=== PATIENT | female | born 1930 | race Caucasian/White ===

== ENCOUNTER 2016-12-25 06:47 | Emergency (ER) | payer MEDICARE, MEDICAID ==
[~2016-12-25] VITALS: Ht 152.4 cm; Wt 56.7 kg
--- NOTE | 2016-12-25 06:47 | NUR ---
Patient to ER bed 2 to gown for evaluation. Side rails up. Report given to am shift RN
[2016-12-25 06:53] VITALS: BP_SYST 175
[2016-12-25] MEDS ORDERED: NACL 0.9% 1,000 ML IV ONE (07:00)
[2016-12-25] MEDS ORDERED: PANT20TA3 PO (07:03)
[2016-12-25] MEDS ORDERED: ALEN70TA27 PO (07:04)
[2016-12-25] MEDS ORDERED: CLOP75TA32 PO (07:05)
[2016-12-25] MEDS ORDERED: ATEN-41 PO (07:05)
[2016-12-25] MEDS ORDERED: PRO20 PO (07:07)
[2016-12-25] MEDS ORDERED: OMEG1CAP48 PO (07:09)
[2016-12-25] MEDS ORDERED: CYAN1TAB47 PO (07:09)
[2016-12-25] MEDS ORDERED: MEMA10TA21 PO (07:10)
[2016-12-25] MEDS ORDERED: MV,C1TAB21 PO (07:10)
--- NOTE | 2016-12-25 07:10 | NUR ---
RECEIVED PATIENT ON BED AWAKE,ALERT,CONFUSED/DISORIENTED.BREATHING EVEN AND UNLABORED.NO ACUTE DISTRESS. Addendum: 12/25/16 at 0738 by BREANN UNABLE TO OBTAIN INFORMATION MUCH INFORMATION DUE TO CONFUSION.NO OTHER COMPLAIN/INJURIES PER PATIENT OR NOTED
[2016-12-25] MEDS ORDERED: GLIP5TAB13 PO (07:11)
[2016-12-25] MEDS ORDERED: ISO10 PO (07:12)
[2016-12-25] MEDS ORDERED: CHOL200035 PO (07:12)
[2016-12-25] MEDS ORDERED: ACET-73 PO (07:14)
[2016-12-25] MEDS ORDERED: CALC-1197 PO (07:14)
[2016-12-25] MEDS ORDERED: ATOR40TA68 PO (07:15)
[2016-12-25] MEDS ORDERED: DONE10TA44 PO (07:15)
[2016-12-25] MEDS ORDERED: CARB30DR14 OP (07:16)
[2016-12-25] MEDS ORDERED: NPH,100V SUBCUT (07:16)
[2016-12-25 07:18] LABS: BASOPHILS # (AUTO) 0.1 K/uL (0.0-0.2); BASOPHILS % (AUTO) 0.9 % (0.0-2.0); EOSINOPHILS # (AUTO) 0.3 K/uL (0.0-0.4); EOSINOPHILS % (AUTO) 5.7 % (0.0-4.0); HEMATOCRIT 35.5 % (36-48); HEMOGLOBIN 11.6 g/dL (12.0-16.0); LYMPHOCYTES # (AUTO) 1.7 K/uL (1.0-5.5); LYMPHOCYTES % (AUTO) 27.9 % (20.5-51.5); MEAN CORPUSCULAR HEMOGLOBIN 31 pg (27-31); MEAN CORPUSCULAR HGB CONC 33 % (32-36); MEAN CORPUSCULAR VOLUME 94 fL (79.0-98.0); MONOCYTES # (AUTO) 0.5 K/uL (0.0-1.0); NEUTROPHILS # (AUTO) 3.5 K/uL (1.8-7.7); NEUTROPHILS % (AUTO) 57.5 % (40.0-70.0); PLATELET COUNT (AUTO) 172 K/uL (130-430); RED BLOOD CELL COUNT(AUTO) 3.78 MIL/uL (4.2-6.2); WHITE BLOOD COUNT (AUTO) 6.1 K/uL (4.8-10.8)
[2016-12-25] MEDS ORDERED: TRIA10PO3 MC (07:18)
[2016-12-25] MEDS ORDERED: TRIA15CR4 TP (07:18)
[2016-12-25] MEDS ORDERED: PERM60CR18 TP (07:19)
--- NOTE | 2016-12-25 07:20 | NUR ---
STRAIGHT CATHETER DONE;TOLERATED PROCEDURE WELL
--- NOTE | 2016-12-25 07:24 | NUR ---
Medication reconciliation completed with information provided by [facility]. Any prior medication reconciliation on file was reviewed and corrected.
[2016-12-25 07:28] LABS: POTASSIUM 4.6 mmol/L (3.5-5.1)
[2016-12-25 07:29] LABS: CALCIUM 9.2 mg/dL (8.4-11.0); CREATININE 0.88 mg/dL (0.55-1.30)
[2016-12-25 07:33] LABS: ALBUMIN 3.4 g/dL (3.4-4.8); TOTAL BILIRUBIN 0.8 mg/dL (0.0-1.0); TOTAL PROTEIN, SERUM 7.8 g/dL (6.4-8.3)
[2016-12-25 07:39] LABS: PROTHROMBIN TIME 10.4 SECS (9.5-12.5)
--- NOTE | 2016-12-25 07:40 | NUR ---
ER at bedside examining patient.
[2016-12-25 07:52] LABS: BILIRUBIN,URINE NEGATIVE (NEGATIVE); CLARITY/URINE CLEAR (CLEAR); COLOR,URINE YELLOW (YELLOW); GLUCOSE,URINE NEGATIVE (NEGATIVE); KETONES,URINE NEGATIVE (NEGATIVE); LEUKOCYTE ESTERASE ,URINE NEGATIVE (NEGATIVE); NITRITE, URINE NEGATIVE (NEGATIVE); PH,URINE 6.5 (5.0-8.0); PROTEIN URINE NEGATIVE (NEGATIVE); UROBILINOGEN,URINE 0.2 (0.2-1.0)
[2016-12-25 07:56] LABS: BLOOD, URINE TRACE (NEGATIVE)
[2016-12-25] MEDS ORDERED: CLOPIDOGREL BISULFATE 75 MG TABLET PO ONE (08:00)
--- NOTE | 2016-12-25 08:00 | NUR ---
# 20 gauge angiocath placed to LAC. Use of asceptic technique. Opsite placed over site. Blood return noted. Flushed with 10 cc of normal saline. No evidence of infiltration noted. Patient tolerated well.
[2016-12-25 08:03] LABS: RBC,URINE 0-3 /HPF (0-3)
[2016-12-25 08:04] LABS: BACTERIA,URINE MANY /HPF (None Seen); MUCUS,URINE None Seen /LPF (None Seen); WBC,URINE 0-3 /HPF (0-3)
--- NOTE | 2016-12-25 08:40 | NUR ---
PATIENT COMPLAINING OF ITCHINESS;WITH RED RAISED RASH TO BOTH ARMS;MD INFORMED;WITH ORDER FOR BENADRYL;CARRIED OUT
[2016-12-25] MEDS ORDERED: DIPHENHYDRAMINE HCL 25 MG CAPSULE PO ONE (08:45)
[2016-12-25] MEDS ORDERED: DIPHENHYDRAMINE INJ 50 MG/ML VIAL ONE (09:01)
--- NOTE | 2016-12-25 09:45 | NUR ---
Assisted pt to BSC. Pt produced a massive brown BM. Pt assisted to bed resumed cardiac monitoring.
--- NOTE | 2016-12-25 10:48 | NUR ---
PATIENT'S SON AT BEDSIDE.REFUSING TO TRANSFER PATIENT TO ANOTHER FACILITY STATED "I REALLY THINK SHE CAN GO BACK TO WHERE SHE LIVES"DR. SANTANA EXPLAINED TO SON THAT THE PATIENT HAD A MILD HEART ATTACK WHICH SHOWED IN HER LAB TESTS BUT STILL HESITANT AND DOES NOT FULLY BELIEVE WHATEVER THE DOCTOR IS TELLING HIM
--- NOTE | 2016-12-25 10:58 | NUR ---
CALLLUIS FERNANDO TAFOYA;SPOKE WITH LEXUS(ER CN);REPORT GIVEN
[2016-12-25 11:40] VITALS: BP_SYST 171
--- NOTE | 2016-12-25 11:58 | NUR ---
Patient to be transferred to [facility] ER. Is being transferred due to Insurance issues. Receiving facility has accepting physician and available space. ER physician has signed transfer form. Patient or responsible green party has agreed to transfer and signed form. Patient belongings inventoried and will be sent with patient. Copy of nursing notes, lab reports, EKG, Physicians Orders and X-rays to be sent with patient. Report called to Sofi at receiving facility. Receiving physician is Dr. Mathews. ambulance service has been called for transfer. ETA is [phone] .
== END 2016-12-25 11:50 | disposition short-term general hospital (02) ==
LOC: SED 06:47
DX: I21.4 Non-ST elevation (NSTEMI) myocardial infarction (principal); E11.9 Type 2 diabetes mellitus without complications; K21.9 Gastro-esophageal reflux disease without esophagitis; I10 Essential (primary) hypertension; E78.00 Pure hypercholesterolemia, unspecified; Z79.899 Other long term (current) drug therapy; Z88.8 Allergy status to other drugs, medicaments and biological substances
CPT/HCPCS: 36415; 70450; 71010; 80053; 81000; 83605; 84484; 85025; 85610; 85730; 87040; 87086; 93005; 96360; 96361; 99285; J1200; J7030; Q0163

== ENCOUNTER 2017-11-07 06:31 | Emergency (ER) | payer MEDICARE, MEDICAID ==
[~2017-11-07] VITALS: Ht 157.5 cm; Wt 83.9 kg
[2017-11-07 06:31] VITALS: BP_SYST 161
[~2017-11-07 06:31] MED LIST: ACET-73 PO; ALEN70TA27 PO; ATEN-41 PO; ATOR40TA68 PO; CALC-1197 PO; CARB30DR14 OP; CHOL200035 PO; CLOP75TA32 PO; CYAN1TAB47 PO; DONE10TA44 PO; GLIP5TAB13 PO; ISO10 PO; MEMA10TA21 PO; MV,C1TAB21 PO; NPH,100V SUBCUT; OMEG1CAP48 PO; PANT20TA3 PO; PERM60CR18 TP; PRO20 PO; TRIA15CR4 TP
[2017-11-07 07:20] LABS: BASOPHILS # (AUTO) 0.1 K/uL (0.0-0.2); BASOPHILS % (AUTO) 0.9 % (0.0-2.0); EOSINOPHILS # (AUTO) 0.2 K/uL (0.0-0.4); HEMATOCRIT 38.7 % (36-48); HEMOGLOBIN 12.1 g/dL (12.0-16.0); LYMPHOCYTES # (AUTO) 1.9 K/uL (1.0-5.5); LYMPHOCYTES % (AUTO) 31.5 % (20.5-51.5); MEAN CORPUSCULAR HEMOGLOBIN 30 pg (27-31); MEAN CORPUSCULAR HGB CONC 31 % (32-36); MEAN CORPUSCULAR VOLUME 96 fL (79.0-98.0); MONOCYTES # (AUTO) 0.6 K/uL (0.0-1.0); MONOCYTES % (AUTO) 9.6 % (1.7-9.3); NEUTROPHILS # (AUTO) 3.1 K/uL (1.8-7.7); PLATELET COUNT (AUTO) 180 K/uL (130-430); RED BLOOD CELL COUNT(AUTO) 4.03 MIL/uL (4.2-6.2); RED CELL DISTRIBUTION WIDTH 12.6 % (9.0-15.0); WHITE BLOOD COUNT (AUTO) 5.9 K/uL (4.8-10.8)
[2017-11-07 07:30] LABS: ANION GAP 4 (5-15); CALCIUM 9.5 mg/dL (8.4-11.0); CHLORIDE 101 mmol/L (98-107); CREATININE 0.77 mg/dL (0.55-1.30); GLUCOSE 109 mg/dL (70-99); POTASSIUM 4.2 mmol/L (3.5-5.1); SODIUM SERUM 135 mmol/L (136-145); UREA NITROGEN, BLOOD 28 mg/dL (8-21)
[2017-11-07 07:34] LABS: ALANINE AMINOTRANSFERASE 69 U/L (12-78); ALBUMIN 2.9 g/dL (3.4-4.8); ASPARTATE AMINOTRANSFERASE 70 U/L (10-37); TOTAL BILIRUBIN 1.1 mg/dL (0.0-1.0)
[2017-11-07 07:35] LABS: BILIRUBIN,URINE NEGATIVE (NEGATIVE); BLOOD, URINE 1+ (NEGATIVE); CLARITY/URINE HAZY (CLEAR); COLOR,URINE YELLOW (YELLOW); GLUCOSE,URINE NEGATIVE (NEGATIVE); KETONES,URINE NEGATIVE (NEGATIVE); LEUKOCYTE ESTERASE ,URINE TRACE (NEGATIVE); NITRITE, URINE NEGATIVE (NEGATIVE); PH,URINE 5.5 (5.0-8.0); PROTEIN URINE TRACE (NEGATIVE); UROBILINOGEN,URINE 0.2 (0.2-1.0)
[2017-11-07 07:40] LABS: BACTERIA,URINE MANY /HPF (None Seen); WBC,URINE 0-3 /HPF (0-3)
[2017-11-07] MEDS ORDERED: cefTRIAXone 1 GM in LIDOCAINE 1%, 20 ML MDV 2.1 ML IM ONE (07:45)
[2017-11-07] MEDS ORDERED: KETOROLAC TROMETHAMINE 60 MG/2 ML VIAL IM ONE (07:45)
[2017-11-07] MEDS ORDERED: cefTRIAXone 1 GM VIAL ONE (08:08)
[2017-11-07] MEDS ORDERED: LIDOCAINE 1%, 20 ML MDV 20 ML ONE (08:08)
[2017-11-07 10:19] VITALS: BP_SYST 159
== END 2017-11-07 10:15 | disposition home or self-care (01) ==
LOC: SED 06:31
DX: A52.17 General paresis (principal); N39.0 Urinary tract infection, site not specified; E11.9 Type 2 diabetes mellitus without complications; K21.9 Gastro-esophageal reflux disease without esophagitis; I10 Essential (primary) hypertension; E78.00 Pure hypercholesterolemia, unspecified; Z79.899 Other long term (current) drug therapy; Z79.4 Long term (current) use of insulin; Z88.8 Allergy status to other drugs, medicaments and biological substances
CPT/HCPCS: 36415; 80053; 81000; 85025; 87086; 96372; 99284; J0696; J1885; J2001

== ENCOUNTER 2018-07-30 19:23 | Emergency (ER) | payer MEDICARE, MEDICAID ==
[~2018-07-30] VITALS: Ht 149.9 cm; Wt 45.4 kg
[~2018-07-30 19:23] MED LIST changes: -CHOL200035 PO; +CHOL200075 PO
[2018-07-30 19:24] VITALS: BP_SYST 157
--- NOTE | 2018-07-30 19:24 | NUR ---
Patient to ER bed 6 to gown for evaluation. Side rails up.
[2018-07-30] MEDS ORDERED: DONE10TA44 PO (19:50)
[2018-07-30] MEDS ORDERED: IBUP-1969 PO (19:50)
[2018-07-30] MEDS ORDERED: PRO20 PO (19:50)
[2018-07-30] MEDS ORDERED: CLOP300T2 PO (19:50)
[2018-07-30] MEDS ORDERED: CARB30DR14 OP (19:50)
[2018-07-30] MEDS ORDERED: LIP40 PO (19:50)
[2018-07-30] MEDS ORDERED: NPH,100I SQ (19:50)
[2018-07-30] MEDS ORDERED: ATEN-41 PO (19:50)
[2018-07-30] MEDS ORDERED: TRIA15CR3 TP (19:50)
[2018-07-30] MEDS ORDERED: PANT20TA2 PO (19:50)
[2018-07-30] MEDS ORDERED: CHOL500037 PO (19:50)
[2018-07-30] MEDS ORDERED: CYAN250014 PO (19:50)
[2018-07-30] MEDS ORDERED: ISO10 PO (19:50)
[2018-07-30] MEDS ORDERED: OMEG1CAP PO (19:50)
[2018-07-30] MEDS ORDERED: CALC-823 PO (19:50)
[2018-07-30] MEDS ORDERED: MEMA10TA21 PO (19:50)
[2018-07-30] MEDS ORDERED: ACET-73 PO (19:50)
[2018-07-30] MEDS ORDERED: GLIP-212 PO (19:50)
[2018-07-30] MEDS ORDERED: HYDR-3917 PO (19:50)
--- NOTE | 2018-07-30 19:53 | NUR ---
Pt went to radiology in stable condition.
--- NOTE | 2018-07-30 19:55 | NUR ---
Pt was brought in by [facility] ambulance for mechanical fall from [facility]. EMS states pt was talking to another resident and fell on the floor landing on her butt. Pt has no complaints of pain and staff denies KO. Pt is confused and has no other complaints at this time. Vitals are stable will continue to monitor.
--- NOTE | 2018-07-30 20:00 | NUR ---
Pt was returned from radiology. Pt refused to get CT, stating "I'm fine!" Pt is able to ambulate from bed to walker. Pt stating "I want to leave and go home."
--- NOTE | 2018-07-30 20:13 | NUR ---
Pt is getting increasingly aggressive towards staff and refuses to get back into bed. Pt has history of dementia and was assisted back to bed. For her saftey soft restraints were placed on pt after all other options have been exhausted. ER MD notified of situation.
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
--- NOTE | 2018-07-30 20:27 | NUR ---
Pt moved to bed 5.
[2018-07-30] MEDS ORDERED: LORazepam 2 MG/ML VIAL (FOR ER USE) IM ONE (20:30)
[2018-07-30] MEDS ORDERED: DIPHENHYDRAMINE INJ 50 MG/ML VIAL IM ONE (20:30)
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
--- NOTE | 2018-07-30 20:54 | NUR ---
Dr. Canales at bedside speaking with family.
--- NOTE | 2018-07-30 20:54 | NUR ---
Family at bedside.
[2018-07-30] MEDS ORDERED: ACETAMINOPHEN 325 MG TABLET PO ONE (21:00)
--- NOTE | 2018-07-30 21:15 | NUR ---
X-ray at bedside.
--- NOTE | 2018-07-30 21:51 | NUR ---
Pt is resting quietly in bed, no acute distress noted. Family is at bedside, will continue to monitor.
--- NOTE | 2018-07-30 22:37 | NUR ---
Patient given written and verbal discharge instructions and verbalizes understanding. ER MD discussed with patient the results and treatment provided. Patient in stable condition. ID arm band removed. Patient educated on pain management and to follow up with PMD. Pain Scale 0/10. Opportunity for questions provided and answered. Medication side effect fact sheet provided.
[2018-07-30 22:38] VITALS: BP_SYST 157
== END 2018-07-30 22:37 | disposition home or self-care (01) ==
LOC: SED 19:23
DX: M25.562 Pain in left knee (principal); E11.9 Type 2 diabetes mellitus without complications; K21.9 Gastro-esophageal reflux disease without esophagitis; E78.00 Pure hypercholesterolemia, unspecified; I10 Essential (primary) hypertension; F03.90 Unspecified dementia, unspecified severity, without behavioral disturbance, psychotic disturbance, mood disturbance, and anxiety; Z88.6 Allergy status to analgesic agent; Z88.8 Allergy status to other drugs, medicaments and biological substances; Z79.899 Other long term (current) drug therapy; Y04.0XXA Assault by unarmed brawl or fight, initial encounter; Y93.89 Activity, other specified; Y92.89 Other specified places as the place of occurrence of the external cause; Y99.8 Other external cause status
CPT/HCPCS: 72170; 73560; 96372; 99283; J1200; J2060